=== PATIENT | female | born 1940 | race Caucasian/White ===

== ENCOUNTER → 2016-08-10 | Outpatient (CLI) | payer MEDICARE ==
[~2016-08-10] MED LIST: AMBIEN 5MG TABLE5 MG PO; AMOXICILLIN 8751 TAB PO; ANTIVERT; ANTIVERT 25MG25 MG PO; ARCAPTA IH; ASPI325T6 PO; ASPIRIN 81M81 MG/TA2 PO; ASPIRIN E.C. 8181 MG PO; ATIVAN 0.50.5 MG/TAB PO; ATROVENT INHALE14 GM IH; B COMPLEX1 TA2 PO; BIOTIN1 MG PO; BRILINTA60 MG PO; BRILINTA90 MG PO; BROVANA15 MCG/2 M IH; BUSPAR DIVIDOSE15 MG PO; BUSPAR5 MG PO; BYSTOLIC10 MG PO; BYSTOLIC5 MG PO; CALCIUM + D 6001 TAB PO; CARDI-OMEGA1000 MG PO; CEPHALEXIN500 M1 PO; CLEOCIN HCL300 MG PO; COMBIVENT INH14.7 GM IH; CYMBALTA; CYMBALTA 60MG60 MG PO; CYMBALTA60 MG PO; DALIRESP500 MCG PO; DEPAKOTE500 M1 PO; DIFLUCAN200 MG PO; DILAUDID 2MG TAB2 MG PO; DULCOLAX STOOL100 MG PO; EYE OP; FERROUS SU325 MG/TAB PO; FLOVENT 110MCG7.9 GM IH; FLOVENT 220MCG7.9 GM IH; FLOVENT DI100 MCG/Ac IH; FOLIC ACID 11 MG/TA1 PO; FOLIC ACID 40400 MCG PO; HCTZ; HCTZ 25MG TAB25 MG PO; HCTZ 25MG25 MG PO; HYDROXYZINE HCL25 MG PO; IPRATROPIUM BROM3 M1 IH; K-DUR 10 MEQ T10 MEQ PO; KLOR-CON 1010 MEQ PO; LAMICTAL; LAMICTAL 100MG100 MG PO; LAMICTAL200 MG PO; LASIX 20MG TABL20 MG PO; LEADER CLE17 GM/Dose PO; LIPITOR20 MG PO; LODINE400 MG PO; LODINE500 MG PO; MAG-OX 400400 MG/TAB PO; MAGNESIUM200 MG PO; METOPROLOL TART25 MG PO; MICARDIS20 MG PO; MOBIC 7.5MG7.5 MG PO; MOTRIN 800800 MG/TAB; MOTRIN800 MG PO; MS CONTIN 115 MG/TAB PO; MULTI-VITAMIN W1 TA1 PO; MULTIVITAMIN FO1 CAP PO; NAMENDA 10MG TA10 MG PO; NAMENDA PO; NAMENDA XR 21MG PO; NEURONTIN; NEURONTIN100 MG/CAP PO; NEURONTIN300 MG/CAP PO; NORCO 325 MG-51 TAB PO; NORVASC 10MG10 MG PO; PAPAYA PO; PRILOSEC 20MG20 MG PO; PRO AIR; PROAIR HFA0.09 MG/AC IH; PROTONIX 40MG T40 MG PO; Patient's Own Medica IH; ROBITUSSIN A-C S1 M1 PO; RT SPIRIVA18 MCG IH; SALINE NASAL 4444 ML NS; SENNA-LAX8.6 MG PO; SENOKOT RC; SINGULAIR 110 MG/TAB PO; SINGULAIR10 MG PO; SPIRIVA HANDIH18 MCG IH; SYNTHROID0.125 MG PO; SYNTHROID0.125 MG/T PO; TESSALON P100 MG/CAP PO; TOPROL; TYLENOL 325MG325 MG PO; TYLENOL 8 HR PO; ULTRAM 50MG TAB50 MG PO; VALIUM2 MG PO; VENTOLIN0.09 MG IH; VITAMIN C PUR1000 MG PO; VITAMIN C500 MG PO; VITAMIN D1000 IU PO; VITAMIN D31000 I1 PO; VITAMINC500CH PO; WELLBUTRIN PO; WELLBUTRIN XL150 MG PO; ZEBETA 5MG5 MG PO
== END ==
LOC: COL.RAD 09:52
DX: K57.30 Diverticulosis of large intestine without perforation or abscess without bleeding (principal)
CPT/HCPCS: Q9967

== ENCOUNTER → 2016-08-25 | Outpatient (CLI) | payer MEDICARE | LOC: BHSO 13:35 | DX: F31.73 Bipolar disorder, in partial remission, most recent episode manic (principal) ==

== ENCOUNTER 2016-08-27 11:34 | Emergency (ER) | payer MEDICARE ==
[~2016-08-27] VITALS: Ht 160 cm; Wt 89.5 kg
[~2016-08-27 11:34] MED LIST changes: -AMBIEN 5MG TABLE5 MG PO; -AMOXICILLIN 8751 TAB PO; -ATIVAN 0.50.5 MG/TAB PO; -BRILINTA60 MG PO; -BRILINTA90 MG PO; -BUSPAR5 MG PO; -CEPHALEXIN500 M1 PO; -DIFLUCAN200 MG PO; -DILAUDID 2MG TAB2 MG PO; -DULCOLAX STOOL100 MG PO; -FLOVENT 220MCG7.9 GM IH; -IPRATROPIUM BROM3 M1 IH; -K-DUR 10 MEQ T10 MEQ PO; -LEADER CLE17 GM/Dose PO; -MAG-OX 400400 MG/TAB PO; -MAGNESIUM200 MG PO; -MS CONTIN 115 MG/TAB PO; -MULTI-VITAMIN W1 TA1 PO; -NAMENDA XR 21MG PO; -NEURONTIN300 MG/CAP PO; -NORCO 325 MG-51 TAB PO; -PROTONIX 40MG T40 MG PO; -Patient's Own Medica IH; -ROBITUSSIN A-C S1 M1 PO; -SENNA-LAX8.6 MG PO; -TYLENOL 325MG325 MG PO; -TYLENOL 8 HR PO; -VITAMIN D31000 I1 PO; -VITAMINC500CH PO; -ZEBETA 5MG5 MG PO
[2016-08-27 11:37] VITALS: TEMP 98
[2016-08-27] MEDS ORDERED: NAMENDA XR 21MG PO (11:51)
[2016-08-27] MEDS ORDERED: ULTRAM 50MG TAB50 MG PO (11:55)
[2016-08-27] MEDS ORDERED: LASIX 20MG TABL20 MG PO (13:10)
[2016-08-27] MEDS ORDERED: CEPHALEXIN500 M1 PO (13:10)
[2016-08-27 13:24] LABS: PH 7 (5-8); SQUAMOUS EPITHELIAL 0-2 /hpf; URINE APPEARANCE Clear; URINE BACTERIA Rare /hpf; URINE BILIRUBIN Negative (NEGATIVE); URINE BLOOD Negative (NEGATIVE); URINE COLOR Yellow; URINE GLUCOSE Negative (NEGATIVE); URINE KETONE Negative (NEGATIVE); URINE RBC 0-2 /hpf; URINE UROBILINOGEN Negative (NEGATIVE); URINE WBC 0-2 /hpf
[2016-08-27 13:28] LABS: ADJUSTED CALCIUM 10.2 mg/dL (8.4-10.2); ALANINE AMINOTRANSFERASE 23 U/L (9-52); ALBUMIN 3.4 gm/dL (3.5-5.0); ALKALINE PHOSPHATASE 72 U/L (50-136); ANION GAP 8 mmol/L (7-16); BILIRUBIN,TOTAL 0.8 mg/dL (0.0-1.0); BLOOD UREA NITROGEN 9 mg/dL (7-17); CALCIUM 9.7 mg/dL (8.4-10.2); CARBON DIOXIDE 33 mmol/L (22-30); CHLORIDE 99 mmol/L (98-107); CREATININE, serum 0.59 mg/dL (0.52-1.25); GLUCOSE 129 mg/dL (74-106); POTASSIUM 3.8 mmol/L (3.4-5.0); SODIUM 139 mmol/L (137-145); TOTAL PROTEIN 6.5 gm/dL (6.4-8.2)
[2016-08-27 13:39] LABS: TROPONIN-I < 0.012 ng/mL (0.000-0.034)
[2016-08-27 13:58] LABS: B-TYPE NATRIURETIC PEPTIDE 121 pg/mL (0-450)
[2016-08-27 14:05] VITALS: BP 167/73; PULSE 93
== END 2016-08-27 14:06 | disposition home or self-care (01) ==
LOC: COL.ER 11:34
PROVIDERS: Emergency Medicine
DX: L03.116 Cellulitis of left lower limb (principal); L03.115 Cellulitis of right lower limb; I10 Essential (primary) hypertension; J44.9 Chronic obstructive pulmonary disease, unspecified; Z99.81 Dependence on supplemental oxygen; F03.90 Unspecified dementia, unspecified severity, without behavioral disturbance, psychotic disturbance, mood disturbance, and anxiety; Z87.891 Personal history of nicotine dependence

== ENCOUNTER → 2016-09-14 | Outpatient (CLI) | payer MEDICARE ==
[~2016-09-14] MED LIST changes: +AMBIEN 5MG TABLE5 MG PO; +AMOXICILLIN 8751 TAB PO; +ATIVAN 0.50.5 MG/TAB PO; +BRILINTA60 MG PO; +BRILINTA90 MG PO; +BUSPAR5 MG PO; +CEPHALEXIN500 M1 PO; +DIFLUCAN200 MG PO; +DILAUDID 2MG TAB2 MG PO; +DULCOLAX STOOL100 MG PO; +FLOVENT 220MCG7.9 GM IH; +IPRATROPIUM BROM3 M1 IH; +K-DUR 10 MEQ T10 MEQ PO; +LEADER CLE17 GM/Dose PO; +MAG-OX 400400 MG/TAB PO; +MAGNESIUM200 MG PO; +MS CONTIN 115 MG/TAB PO; +MULTI-VITAMIN W1 TA1 PO; +NAMENDA XR 21MG PO; +NEURONTIN300 MG/CAP PO; +NORCO 325 MG-51 TAB PO; +PROTONIX 40MG T40 MG PO; +Patient's Own Medica IH; +ROBITUSSIN A-C S1 M1 PO; +SENNA-LAX8.6 MG PO; +TYLENOL 325MG325 MG PO; +TYLENOL 8 HR PO; +VITAMIN D31000 I1 PO; +VITAMINC500CH PO; +ZEBETA 5MG5 MG PO
== END ==
LOC: MHCPAIN 12:04
DX: G89.29 Other chronic pain (principal); M47.817 Spondylosis without myelopathy or radiculopathy, lumbosacral region; M54.16 Radiculopathy, lumbar region; M53.3 Sacrococcygeal disorders, not elsewhere classified; M25.561 Pain in right knee; M25.562 Pain in left knee; M25.551 Pain in right hip; M25.552 Pain in left hip; E11.9 Type 2 diabetes mellitus without complications
CPT/HCPCS: G0463

== ENCOUNTER → 2016-10-18 | Outpatient (CLI) | payer MEDICARE | LOC: MHCPAIN 12:21 | DX: G89.29 Other chronic pain (principal); M47.27 Other spondylosis with radiculopathy, lumbosacral region; Z87.891 Personal history of nicotine dependence | CPT/HCPCS: G0463 ==

== ENCOUNTER 2016-10-21 08:05 | Day surgery (SDC) | payer MEDICARE ==
[~2016-10-21] VITALS: Ht 160 cm; Wt 86.5 kg
[2016-10-21] VITALS (339 sets, daily range): BP systolic 122–168; BP diastolic 50–71; PULSE 75–84; TEMP 98.3–98.9; O2SAT 81–99
[~2016-10-21 08:05] MED LIST changes: -AMBIEN 5MG TABLE5 MG PO; -AMOXICILLIN 8751 TAB PO; -ATIVAN 0.50.5 MG/TAB PO; -BRILINTA60 MG PO; -BRILINTA90 MG PO; -BUSPAR5 MG PO; -DIFLUCAN200 MG PO; -DILAUDID 2MG TAB2 MG PO; -DULCOLAX STOOL100 MG PO; -FLOVENT 220MCG7.9 GM IH; -IPRATROPIUM BROM3 M1 IH; -K-DUR 10 MEQ T10 MEQ PO; -LEADER CLE17 GM/Dose PO; -MAG-OX 400400 MG/TAB PO; -MAGNESIUM200 MG PO; -MS CONTIN 115 MG/TAB PO; -MULTI-VITAMIN W1 TA1 PO; -NEURONTIN300 MG/CAP PO; -NORCO 325 MG-51 TAB PO; -PROTONIX 40MG T40 MG PO; -Patient's Own Medica IH; -ROBITUSSIN A-C S1 M1 PO; -SENNA-LAX8.6 MG PO; -TYLENOL 325MG325 MG PO; -TYLENOL 8 HR PO; -VITAMIN D31000 I1 PO; -VITAMINC500CH PO; -ZEBETA 5MG5 MG PO
[2016-10-21 08:26] LABS: MEAN CELL VOLUME 88 fl (80.0-100.0); MEAN CORPUSCULAR HGB CONC 32 g/dl (33.0-37.0); MEAN PLATELET VOLUME 8.8 fl (7.4-10.4); PLATELET COUNT 259 K/mm3 (130-400); RED BLOOD COUNT 3.95 M/mm3 (4.10-5.30); REDCELL DISTRIBUTION WIDTH-CV 14.1 % (11.5-14.5); WHITE BLOOD COUNT 14.8 K/mm3 (4.8-10.8)
[2016-10-21 08:27] LABS: HEMATOCRIT 34.7 % (37.0-47.0); MEAN CORPUSCULAR HEMOGLOBIN 28 pg (27.0-31.0)
[2016-10-21 08:32] LABS: INR 1.4 (0.8-3.0); PROTHROMBIN TIME 15.7 SECONDS (9.7-12.8)
[2016-10-21 08:34] LABS: PARTIAL THROMBOPLASTIN TIME 30.8 SECONDS (26.0-37.0)
[2016-10-21 08:39] LABS: CALCIUM 10.2 mg/dL (8.4-10.2); CREATININE, serum 0.7 mg/dL (0.52-1.25); POTASSIUM 4.1 mmol/L (3.4-5.0)
[2016-10-21] MEDS ORDERED: PROTONIX 40MG T40 MG PO (09:48)
[2016-10-21] MEDS ORDERED: MAGNESIUM200 MG PO (09:49)
[2016-10-21] MEDS ORDERED: DULCOLAX STOOL100 MG PO (09:50)
[2016-10-21] MEDS ORDERED: NEURONTIN300 MG/CAP PO (09:51)
[2016-10-22] VITALS (71 sets, daily range): BP systolic 125–154; BP diastolic 58–78; PULSE 75–84; TEMP 98.6–99; O2SAT 79–97
[2016-10-22 05:20] LABS: BASO % 0.3 % (0.0-2.0); EOS # 0.1 (0.0-0.7); EOS % 0.6 % (0-4.0); GRAN # 9.8 (1.4-6.5); GRAN % 77.3 % (42.2-75.2); LYMPH # 1.7 (1.2-3.4); MEAN CELL VOLUME 87 fl (80.0-100.0); MEAN CORPUSCULAR HGB CONC 32 g/dl (33.0-37.0); MEAN PLATELET VOLUME 9.2 fl (7.4-10.4); MONO % 8.2 % (1.7-9.3); PLATELET COUNT 234 K/mm3 (130-400); RED BLOOD COUNT 3.58 M/mm3 (4.10-5.30); REDCELL DISTRIBUTION WIDTH-CV 13.9 % (11.5-14.5); WHITE BLOOD COUNT 12.7 K/mm3 (4.8-10.8)
[2016-10-22 05:21] LABS: HEMOGLOBIN 9.8 g/dl (12.5-16.0); MEAN CORPUSCULAR HEMOGLOBIN 27 pg (27.0-31.0)
[2016-10-22 05:33] LABS: ANION GAP 5 mmol/L (7-16); BLOOD UREA NITROGEN 8 mg/dL (7-17); CALCIUM 9.6 mg/dL (8.4-10.2); CARBON DIOXIDE 31 mmol/L (22-30); CHLORIDE 98 mmol/L (98-107); CREATININE, serum 0.58 mg/dL (0.52-1.25); GLUCOSE 118 mg/dL (74-106); SODIUM 134 mmol/L (137-145)
[2016-10-22 05:34] LABS: CREATINE KINASE < 20 U/L (30-135)
== END 2016-10-22 10:10 | disposition home or self-care (01) ==
LOC: COL.CAR 08:05 → ICU 11:14 → COL.CAR 10-22 10:10
PROVIDERS: Internal Medicine Interventional Cardiology
DX: I25.10 Atherosclerotic heart disease of native coronary artery without angina pectoris (principal); R94.39 Abnormal result of other cardiovascular function study; I27.2 Other secondary pulmonary hypertension; R07.9 Chest pain, unspecified; J44.9 Chronic obstructive pulmonary disease, unspecified; R60.0 Localized edema; Z80.9 Family history of malignant neoplasm, unspecified; I10 Essential (primary) hypertension; L03.90 Cellulitis, unspecified; Z90.49 Acquired absence of other specified parts of digestive tract; Z90.710 Acquired absence of both cervix and uterus; Z96.653 Presence of artificial knee joint, bilateral; Z96.643 Presence of artificial hip joint, bilateral; Z87.891 Personal history of nicotine dependence
CPT/HCPCS: OP; C1725; C1760; C1769; C1874; C1887; C1894; C9600; J0153; J0583; J2250; J3010; Q9967

== ENCOUNTER 2016-11-03 08:45 | Outpatient (RCR) | payer MEDICARE ==
[~2016-11-03 08:45] MED LIST changes: +DULCOLAX STOOL100 MG PO; +MAGNESIUM200 MG PO; +NEURONTIN300 MG/CAP PO; +PROTONIX 40MG T40 MG PO
[2016-11-06] MEDS ORDERED: BRILINTA60 MG PO (16:37)
[2016-11-06] MEDS ORDERED: NEURONTIN300 MG/CAP PO (16:37)
[2016-11-06] MEDS ORDERED: PROTONIX 40MG T40 MG PO (16:38)
[2016-11-11] MEDS ORDERED: DIFLUCAN200 MG PO (14:55)
[2016-11-11] MEDS ORDERED: AMOXICILLIN 8751 TAB PO (14:55)
[2016-11-11] MEDS ORDERED: TYLENOL 8 HR PO (14:57)
[2016-11-11] MEDS ORDERED: LASIX 20MG TABL20 MG PO (14:58)
[2016-11-11] MEDS ORDERED: NORCO 325 MG-51 TAB PO (15:00)
[2016-11-11] MEDS ORDERED: DILAUDID 2MG TAB2 MG PO (15:00)
[2016-11-11] MEDS ORDERED: ATIVAN 0.50.5 MG/TAB PO (15:00)
[2016-11-16] MEDS ORDERED: SINGULAIR 110 MG/TAB PO (11:29)
[2016-11-16] MEDS ORDERED: VITAMINC500CH PO (11:29)
[2016-11-16] MEDS ORDERED: SENNA-LAX8.6 MG PO (11:29)
[2016-11-16] MEDS ORDERED: NEURONTIN300 MG/CAP PO (11:29)
[2016-11-16] MEDS ORDERED: VITAMIN D31000 I1 PO (11:29)
[2016-11-16] MEDS ORDERED: ASPIRIN 81M81 MG/TA2 PO (11:29)
[2016-11-16] MEDS ORDERED: MULTI-VITAMIN W1 TA1 PO (11:29)
[2016-11-16] MEDS ORDERED: ZEBETA 5MG5 MG PO (11:29)
[2016-11-16] MEDS ORDERED: ROBITUSSIN A-C S1 M1 PO (11:29)
[2016-11-16] MEDS ORDERED: HCTZ 25MG TAB25 MG PO (11:29)
[2016-11-16] MEDS ORDERED: K-DUR 10 MEQ T10 MEQ PO (11:29)
[2016-11-16] MEDS ORDERED: LEADER CLE17 GM/Dose PO (11:29)
[2016-11-16] MEDS ORDERED: BUSPAR5 MG PO (11:29)
[2016-11-16] MEDS ORDERED: Patient's Own Medica IH (11:29)
[2016-11-16] MEDS ORDERED: BRILINTA90 MG PO (11:29)
[2016-11-16] MEDS ORDERED: TESSALON P100 MG/CAP PO (11:29)
[2016-11-16] MEDS ORDERED: AMBIEN 5MG TABLE5 MG PO (11:29)
[2016-11-16] MEDS ORDERED: MAG-OX 400400 MG/TAB PO (11:29)
[2016-11-16] MEDS ORDERED: FLOVENT 220MCG7.9 GM IH (11:29)
[2016-11-16] MEDS ORDERED: TYLENOL 325MG325 MG PO (11:29)
[2016-11-16] MEDS ORDERED: PROTONIX 40MG T40 MG PO (11:29)
[2016-11-16] MEDS ORDERED: LAMICTAL 100MG100 MG PO (11:29)
[2016-11-16] MEDS ORDERED: MS CONTIN 115 MG/TAB PO (11:29)
[2016-11-16] MEDS ORDERED: FOLIC ACID 11 MG/TA1 PO (11:29)
[2016-11-16] MEDS ORDERED: IPRATROPIUM BROM3 M1 IH ×2 (11:29)
== END 2016-11-24 08:54 ==
LOC: WSPT 08:45
DX: M54.16 Radiculopathy, lumbar region (principal); M79.2 Neuralgia and neuritis, unspecified; M53.3 Sacrococcygeal disorders, not elsewhere classified; G89.29 Other chronic pain
CPT/HCPCS: G0283-GP; G8978-GP; G8979-GP; G8980-GP

== ENCOUNTER 2016-11-06 11:36 | Inpatient (IN) | payer MEDICARE ==
[~2016-11-06] VITALS: Ht 160 cm; Wt 88.3 kg
[2016-11-06 12:23] LABS: BASO % 0.2 % (0.0-2.0); EOS % 0.1 % (0-4.0); GRAN # 17.7 (1.4-6.5); GRAN % 85.8 % (42.2-75.2); LYMPH # 1.4 (1.2-3.4); LYMPH % 6.9 % (20.0-51.0); MEAN CELL VOLUME 87 fl (80.0-100.0); MEAN CORPUSCULAR HGB CONC 31 g/dl (33.0-37.0); MEAN PLATELET VOLUME 8.9 fl (7.4-10.4); MONO # 1.2 (0.1-0.6); PLATELET COUNT 465 K/mm3 (130-400); RED BLOOD COUNT 3.92 M/mm3 (4.10-5.30); REDCELL DISTRIBUTION WIDTH-CV 15.2 % (11.5-14.5)
[2016-11-06 12:26] LABS: ADJUSTED CALCIUM 10.8 mg/dL (8.4-10.2); ALBUMIN 3.2 gm/dL (3.5-5.0); BILIRUBIN,TOTAL 0.7 mg/dL (0.0-1.0); CALCIUM 10.2 mg/dL (8.4-10.2); CREATININE, serum 0.5 mg/dL (0.52-1.25); POTASSIUM 3.8 mmol/L (3.4-5.0); TOTAL PROTEIN 6.9 gm/dL (6.4-8.2)
[2016-11-06 12:27] LABS: ARTERIAL BLD GAS O2 SATURATION 97.2 % (92-100); ARTERIAL BLD GAS TCO2 CT 28.8; ARTERIAL BLOOD GAS BASE EXCESS 3.6 (-2-2); ARTERIAL BLOOD GAS HCO3 27.6 meq/L (22-26); ARTERIAL BLOOD GAS PHT 7.46 C (7.35-7.45); ARTERIAL BLOOD GAS PO2 99.2 mmHg (80-100); ARTERIAL BLOOD GAS PO2T 99.2 (80-100); ARTERIAL BLOOD GAS pH 7.46 (7.35-7.45); OXYHEMOGLOBIN 96.5 %
[2016-11-06 12:28] LABS: ATS? YES
[2016-11-06 12:28] LABS: HEMATOCRIT 34.1 % (37.0-47.0); HEMOGLOBIN 10.6 g/dl (12.5-16.0); MEAN CORPUSCULAR HEMOGLOBIN 27 pg (27.0-31.0); WHITE BLOOD COUNT 20.6 K/mm3 (4.8-10.8)
[2016-11-06 15:47] VITALS: BP 145/59; PULSE 102; TEMP 98.6
[2016-11-06] MEDS ORDERED: NEURONTIN300 MG/CAP PO (16:37)
[2016-11-06] MEDS ORDERED: BRILINTA60 MG PO (16:37)
[2016-11-06] MEDS ORDERED: PROTONIX 40MG T40 MG PO (16:38)
[2016-11-06 19:31] LABS: PH 5 (5-8); URINE APPEARANCE Clear; URINE BACTERIA Rare /hpf; URINE BILIRUBIN Negative (NEGATIVE); URINE BLOOD Negative (NEGATIVE); URINE COLOR Yellow; URINE GLUCOSE Negative (NEGATIVE); URINE KETONE 2+ (NEGATIVE); URINE RBC None Seen /hpf; URINE UROBILINOGEN Negative (NEGATIVE)
[2016-11-06 20:23] VITALS: BP 125/45; PULSE 109; TEMP 99.1
[2016-11-07 00:49] VITALS: BP 121/48; PULSE 88; TEMP 98.2
[2016-11-07 04:51] VITALS: BP 125/52; PULSE 99; TEMP 98.6
[2016-11-07 07:59] VITALS: BP 122/50; PULSE 102; TEMP 98.6
[2016-11-07 13:31] VITALS: BP 133/58; PULSE 98; TEMP 98.6
[2016-11-07 16:37] VITALS: BP 152/62; PULSE 110; TEMP 99
[2016-11-07 21:06] VITALS: BP 133/53; PULSE 95; TEMP 99.2
[2016-11-08 00:02] VITALS: BP 133/53; PULSE 91; TEMP 99
[2016-11-08 03:52] VITALS: BP 129/52; PULSE 88; TEMP 97.9
[2016-11-08 06:22] LABS: BASO % 0.2 % (0.0-2.0); EOS # 0.1 (0.0-0.7); EOS % 0.7 % (0-4.0); GRAN # 10.2 (1.4-6.5); GRAN % 79.9 % (42.2-75.2); LYMPH # 1.5 (1.2-3.4); LYMPH % 12.1 % (20.0-51.0); MEAN CELL VOLUME 86 fl (80.0-100.0); MEAN CORPUSCULAR HGB CONC 30 g/dl (33.0-37.0); MONO # 0.8 (0.1-0.6); MONO % 6.4 % (1.7-9.3); PLATELET COUNT 379 K/mm3 (130-400); RED BLOOD COUNT 3.47 M/mm3 (4.10-5.30); REDCELL DISTRIBUTION WIDTH-CV 15.5 % (11.5-14.5); WHITE BLOOD COUNT 12.8 K/mm3 (4.8-10.8)
[2016-11-08 06:23] LABS: HEMATOCRIT 29.9 % (37.0-47.0); HEMOGLOBIN 9.1 g/dl (12.5-16.0); MEAN CORPUSCULAR HEMOGLOBIN 26 pg (27.0-31.0)
[2016-11-08 08:24] VITALS: BP 138/60; PULSE 96; TEMP 98.2
[2016-11-08 11:43] VITALS: BP 145/66; PULSE 108; TEMP 98
[2016-11-08 15:57] VITALS: BP 153/79; PULSE 123; TEMP 99.2
[2016-11-08 20:41] VITALS: BP 131/54; PULSE 102; TEMP 98.5
[2016-11-09 00:28] VITALS: BP 126/51; PULSE 93; TEMP 97.6
[2016-11-09 07:23] VITALS: BP 144/56; PULSE 96; TEMP 99.3
[2016-11-09 07:48] LABS: CALCIUM 9.7 mg/dL (8.4-10.2); CREATININE, serum 0.42 mg/dL (0.52-1.25); POTASSIUM 3.7 mmol/L (3.4-5.0)
[2016-11-09 07:55] LABS: BASO % 0.2 % (0.0-2.0); EOS # 0.1 (0.0-0.7); GRAN # 10.4 (1.4-6.5); GRAN % 81.7 % (42.2-75.2); LYMPH # 1.4 (1.2-3.4); LYMPH % 10.7 % (20.0-51.0); MEAN CELL VOLUME 89 fl (80.0-100.0); MEAN CORPUSCULAR HGB CONC 30 g/dl (33.0-37.0); MEAN PLATELET VOLUME 9.6 fl (7.4-10.4); MONO # 0.7 (0.1-0.6); MONO % 5.8 % (1.7-9.3); PLATELET COUNT 362 K/mm3 (130-400); RED BLOOD COUNT 3.35 M/mm3 (4.10-5.30); REDCELL DISTRIBUTION WIDTH-CV 15.8 % (11.5-14.5); WHITE BLOOD COUNT 12.8 K/mm3 (4.8-10.8)
[2016-11-09 08:08] LABS: HEMATOCRIT 29.9 % (37.0-47.0); MEAN CORPUSCULAR HEMOGLOBIN 27 pg (27.0-31.0)
[2016-11-09 12:14] VITALS: BP 133/62; PULSE 117; TEMP 98.6
[2016-11-09 15:45] VITALS: BP 128/67; PULSE 108; TEMP 98.1
[2016-11-09 20:08] VITALS: BP 146/55; PULSE 123; TEMP 99.1
[2016-11-10] VITALS (7 sets, daily range): BP systolic 115–160; BP diastolic 48–68; PULSE 78–100; TEMP 98–100
[2016-11-10 07:28] LABS: BASO % 0.3 % (0.0-2.0); EOS # 0.2 (0.0-0.7); EOS % 1.7 % (0-4.0); GRAN # 10.1 (1.4-6.5); GRAN % 78.5 % (42.2-75.2); LYMPH # 1.7 (1.2-3.4); MEAN CELL VOLUME 88 fl (80.0-100.0); MEAN CORPUSCULAR HGB CONC 30 g/dl (33.0-37.0); MEAN PLATELET VOLUME 9.1 fl (7.4-10.4); MONO # 0.8 (0.1-0.6); MONO % 5.9 % (1.7-9.3); PLATELET COUNT 365 K/mm3 (130-400); RED BLOOD COUNT 3.34 M/mm3 (4.10-5.30); REDCELL DISTRIBUTION WIDTH-CV 15.7 % (11.5-14.5); WHITE BLOOD COUNT 12.9 K/mm3 (4.8-10.8)
[2016-11-10 07:29] LABS: HEMATOCRIT 29.3 % (37.0-47.0); HEMOGLOBIN 8.9 g/dl (12.5-16.0); MEAN CORPUSCULAR HEMOGLOBIN 27 pg (27.0-31.0)
[2016-11-10 07:46] LABS: CALCIUM 9.9 mg/dL (8.4-10.2); CREATININE, serum 0.5 mg/dL (0.52-1.25); POTASSIUM 3.2 mmol/L (3.4-5.0)
[2016-11-11] VITALS (318 sets, daily range): BP systolic 124–156; BP diastolic 53–74; PULSE 87–130; TEMP 97.9–103; O2SAT 77–100
[2016-11-11 05:05] LABS: BASO % 0.3 % (0.0-2.0); EOS # 0.2 (0.0-0.7); EOS % 1.7 % (0-4.0); GRAN # 9.7 (1.4-6.5); GRAN % 76.9 % (42.2-75.2); LYMPH # 1.7 (1.2-3.4); LYMPH % 13.6 % (20.0-51.0); MEAN CELL VOLUME 86 fl (80.0-100.0); MEAN CORPUSCULAR HGB CONC 31 g/dl (33.0-37.0); MONO # 0.9 (0.1-0.6); MONO % 6.8 % (1.7-9.3); PLATELET COUNT 351 K/mm3 (130-400); RED BLOOD COUNT 3.26 M/mm3 (4.10-5.30); REDCELL DISTRIBUTION WIDTH-CV 15.4 % (11.5-14.5); WHITE BLOOD COUNT 12.7 K/mm3 (4.8-10.8)
[2016-11-11 05:12] LABS: HEMATOCRIT 28.1 % (37.0-47.0); HEMOGLOBIN 8.6 g/dl (12.5-16.0); MEAN CORPUSCULAR HEMOGLOBIN 26 pg (27.0-31.0)
[2016-11-11 05:15] LABS: CALCIUM 9.4 mg/dL (8.4-10.2); CREATININE, serum 0.49 mg/dL (0.52-1.25); POTASSIUM 3.8 mmol/L (3.4-5.0)
[2016-11-11 05:16] LABS: INR 1.5 (0.8-3.0); PROTHROMBIN TIME 16.4 SECONDS (9.7-12.8)
[2016-11-11] MEDS ORDERED: AMOXICILLIN 8751 TAB PO (14:55)
[2016-11-11] MEDS ORDERED: DIFLUCAN200 MG PO (14:55)
[2016-11-11] MEDS ORDERED: TYLENOL 8 HR PO (14:57)
[2016-11-11] MEDS ORDERED: LASIX 20MG TABL20 MG PO (14:58)
[2016-11-11] MEDS ORDERED: ATIVAN 0.50.5 MG/TAB PO (15:00)
[2016-11-11] MEDS ORDERED: DILAUDID 2MG TAB2 MG PO (15:00)
[2016-11-11] MEDS ORDERED: NORCO 325 MG-51 TAB PO (15:00)
[2016-11-11 20:35] LABS: BASO % 0.2 % (0.0-2.0); EOS # 0.1 (0.0-0.7); EOS % 0.4 % (0-4.0); GRAN # 13.4 (1.4-6.5); GRAN % 81.3 % (42.2-75.2); LYMPH # 1.8 (1.2-3.4); LYMPH % 10.6 % (20.0-51.0); MEAN CELL VOLUME 87 fl (80.0-100.0); MEAN CORPUSCULAR HGB CONC 31 g/dl (33.0-37.0); MEAN PLATELET VOLUME 8.8 fl (7.4-10.4); MONO # 1.1 (0.1-0.6); MONO % 6.7 % (1.7-9.3); PLATELET COUNT 355 K/mm3 (130-400); RED BLOOD COUNT 3.48 M/mm3 (4.10-5.30); REDCELL DISTRIBUTION WIDTH-CV 15.5 % (11.5-14.5); WHITE BLOOD COUNT 16.5 K/mm3 (4.8-10.8)
[2016-11-11 20:45] LABS: HEMATOCRIT 30.3 % (37.0-47.0); HEMOGLOBIN 9.4 g/dl (12.5-16.0); MEAN CORPUSCULAR HEMOGLOBIN 27 pg (27.0-31.0)
[2016-11-11 20:49] LABS: CALCIUM 9.8 mg/dL (8.4-10.2); CREATININE, serum 0.57 mg/dL (0.52-1.25); POTASSIUM 4.1 mmol/L (3.4-5.0)
[2016-11-12] VITALS (641 sets, daily range): BP systolic 122–127; BP diastolic 52–63; PULSE 87–93; TEMP 98.4–99.3; O2SAT 89–100
[2016-11-12 00:03] LABS: PH 6 (5-8); URINE APPEARANCE Clear; URINE BACTERIA None Seen /hpf; URINE BILIRUBIN Negative (NEGATIVE); URINE BLOOD Negative (NEGATIVE); URINE COLOR Yellow; URINE GLUCOSE Negative (NEGATIVE); URINE KETONE Negative (NEGATIVE); URINE UROBILINOGEN Negative (NEGATIVE)
[2016-11-12 04:35] LABS: BASO % 0.3 % (0.0-2.0); EOS # 0.1 (0.0-0.7); EOS % 0.8 % (0-4.0); GRAN # 13.1 (1.4-6.5); GRAN % 82.1 % (42.2-75.2); LYMPH # 1.5 (1.2-3.4); LYMPH % 9.2 % (20.0-51.0); MEAN CELL VOLUME 86 fl (80.0-100.0); MEAN CORPUSCULAR HGB CONC 31 g/dl (33.0-37.0); MONO # 1.1 (0.1-0.6); MONO % 6.8 % (1.7-9.3); RED BLOOD COUNT 3.38 M/mm3 (4.10-5.30); REDCELL DISTRIBUTION WIDTH-CV 15.4 % (11.5-14.5); WHITE BLOOD COUNT 15.9 K/mm3 (4.8-10.8)
[2016-11-12 04:37] LABS: HEMATOCRIT 29.2 % (37.0-47.0); MEAN CORPUSCULAR HEMOGLOBIN 27 pg (27.0-31.0)
[2016-11-12 04:38] LABS: MEAN PLATELET VOLUME 9.9 fl (7.4-10.4); PLATELET COUNT 348 K/mm3 (130-400)
[2016-11-12 04:42] LABS: ADJUSTED CALCIUM 10.8 mg/dL (8.4-10.2); ALBUMIN 2.6 gm/dL (3.5-5.0); BILIRUBIN,TOTAL 0.8 mg/dL (0.0-1.0); CALCIUM 9.7 mg/dL (8.4-10.2); CREATININE, serum 0.45 mg/dL (0.52-1.25); MAGNESIUM 1.9 mg/dL (1.6-2.3); POTASSIUM 4.1 mmol/L (3.4-5.0); TOTAL PROTEIN 5.7 gm/dL (6.4-8.2)
[2016-11-12 14:48] LABS: PH 6 (5-8); URINE APPEARANCE Clear; URINE BACTERIA None Seen /hpf; URINE BILIRUBIN Negative (NEGATIVE); URINE BLOOD Negative (NEGATIVE); URINE COLOR Yellow; URINE GLUCOSE Negative (NEGATIVE); URINE KETONE Negative (NEGATIVE); URINE RBC 0-2 /hpf; URINE UROBILINOGEN Negative (NEGATIVE); URINE WBC 0-2 /hpf
[2016-11-13 01:57] VITALS: BP 132/49; PULSE 85; TEMP 98.1
[2016-11-13 06:01] VITALS: BP 136/47; PULSE 94; TEMP 98.2
[2016-11-13 07:15] LABS: ADD PATHOLOGY DIFF REVIEW NO
[2016-11-13 07:36] LABS: MEAN CELL VOLUME 86 fl (80.0-100.0); MEAN CORPUSCULAR HGB CONC 31 g/dl (33.0-37.0); PLATELET COUNT 364 K/mm3 (130-400); RED BLOOD COUNT 3.12 M/mm3 (4.10-5.30); REDCELL DISTRIBUTION WIDTH-CV 15.2 % (11.5-14.5); WHITE BLOOD COUNT 13.2 K/mm3 (4.8-10.8)
[2016-11-13 07:41] LABS: CALCIUM 9.7 mg/dL (8.4-10.2); CREATININE, serum 0.56 mg/dL (0.52-1.25); MAGNESIUM 1.9 mg/dL (1.6-2.3); POTASSIUM 3.6 mmol/L (3.4-5.0)
[2016-11-13 07:49] LABS: HEMATOCRIT 26.8 % (37.0-47.0); HEMOGLOBIN 8.4 g/dl (12.5-16.0); MEAN CORPUSCULAR HEMOGLOBIN 27 pg (27.0-31.0)
[2016-11-13 09:30] VITALS: BP 141/57; PULSE 88; TEMP 98.6
[2016-11-13 10:21] LABS: BAND 24 % (0-10); EOSINOPHIL 2 % (0-4); NEUTROPHILS 60 % (42.0-75.2); TOTAL CELLS COUNTED 100
[2016-11-13 10:22] LABS: PLATELET ESTIMATE NORMAL (NORMAL)
[2016-11-13 15:00] VITALS: BP 127/56; PULSE 88; TEMP 98
[2016-11-13 18:00] VITALS: BP 151/56; PULSE 98; TEMP 98.4
[2016-11-13 19:30] VITALS: BP 124/47; PULSE 96; TEMP 98.6
[2016-11-14 04:46] VITALS: BP 133/55; PULSE 80; TEMP 98.3
[2016-11-14 10:00] VITALS: BP 118/47; PULSE 77; TEMP 97.7
[2016-11-14 14:29] VITALS: BP 108/48; PULSE 87; TEMP 97.9
[2016-11-14 17:40] VITALS: BP 124/50; PULSE 86; TEMP 98.2
[2016-11-14 22:01] VITALS: BP 116/43; PULSE 86; TEMP 98.1
[2016-11-15 01:44] VITALS: BP 113/46; PULSE 74; TEMP 98.4
[2016-11-15 05:32] LABS: ADD PATHOLOGY DIFF REVIEW NO
[2016-11-15 05:36] VITALS: BP 110/49; PULSE 84; TEMP 99.2
[2016-11-15 05:48] LABS: HEMATOCRIT 47.5 % (37.0-47.0); MEAN CELL VOLUME 87 fl (80.0-100.0); MEAN CORPUSCULAR HGB CONC 31 g/dl (33.0-37.0); MEAN PLATELET VOLUME 8.9 fl (7.4-10.4); RED BLOOD COUNT 5.46 M/mm3 (4.10-5.30); REDCELL DISTRIBUTION WIDTH-CV 15.7 % (11.5-14.5); WHITE BLOOD COUNT 7.4 K/mm3 (4.8-10.8)
[2016-11-15 05:49] LABS: CALCIUM 9.9 mg/dL (8.4-10.2); CREATININE, serum 0.6 mg/dL (0.52-1.25); HEMOGLOBIN 14.5 g/dl (12.5-16.0); MEAN CORPUSCULAR HEMOGLOBIN 27 pg (27.0-31.0); PLATELET COUNT 208 K/mm3 (130-400); POTASSIUM 3.9 mmol/L (3.4-5.0)
[2016-11-15 06:24] LABS: BAND 12 % (0-10); EOSINOPHIL 2 % (0-4); NEUTROPHILS 71 % (42.0-75.2); TOTAL CELLS COUNTED 100
[2016-11-15 09:34] VITALS: BP 113/47; PULSE 82; TEMP 98.1
[2016-11-15 13:57] VITALS: BP 139/55; PULSE 84; TEMP 98.2
[2016-11-15 17:33] VITALS: BP 156/64; PULSE 100; TEMP 100.1
[2016-11-15 19:35] VITALS: TEMP 101
[2016-11-16 03:00] VITALS: BP 133/55; PULSE 80; TEMP 97.2
[2016-11-16 05:35] VITALS: BP 132/58; PULSE 80; TEMP 99.3
[2016-11-16] MEDS ORDERED: K-DUR 10 MEQ T10 MEQ PO (11:29)
[2016-11-16] MEDS ORDERED: MS CONTIN 115 MG/TAB PO (11:29)
[2016-11-16] MEDS ORDERED: MULTI-VITAMIN W1 TA1 PO (11:29)
[2016-11-16] MEDS ORDERED: VITAMIN D31000 I1 PO (11:29)
[2016-11-16] MEDS ORDERED: IPRATROPIUM BROM3 M1 IH ×2 (11:29)
[2016-11-16] MEDS ORDERED: SENNA-LAX8.6 MG PO (11:29)
[2016-11-16] MEDS ORDERED: AMBIEN 5MG TABLE5 MG PO (11:29)
[2016-11-16] MEDS ORDERED: ROBITUSSIN A-C S1 M1 PO (11:29)
[2016-11-16] MEDS ORDERED: VITAMINC500CH PO (11:29)
[2016-11-16] MEDS ORDERED: FLOVENT 220MCG7.9 GM IH (11:29)
[2016-11-16] MEDS ORDERED: FOLIC ACID 11 MG/TA1 PO (11:29)
[2016-11-16] MEDS ORDERED: BRILINTA90 MG PO (11:29)
[2016-11-16] MEDS ORDERED: NEURONTIN300 MG/CAP PO (11:29)
[2016-11-16] MEDS ORDERED: ASPIRIN 81M81 MG/TA2 PO (11:29)
[2016-11-16] MEDS ORDERED: Patient's Own Medica IH (11:29)
[2016-11-16] MEDS ORDERED: BUSPAR5 MG PO (11:29)
[2016-11-16] MEDS ORDERED: HCTZ 25MG TAB25 MG PO (11:29)
[2016-11-16] MEDS ORDERED: LAMICTAL 100MG100 MG PO (11:29)
[2016-11-16] MEDS ORDERED: LEADER CLE17 GM/Dose PO (11:29)
[2016-11-16] MEDS ORDERED: ZEBETA 5MG5 MG PO (11:29)
[2016-11-16] MEDS ORDERED: TESSALON P100 MG/CAP PO (11:29)
[2016-11-16] MEDS ORDERED: SINGULAIR 110 MG/TAB PO (11:29)
[2016-11-16] MEDS ORDERED: PROTONIX 40MG T40 MG PO (11:29)
[2016-11-16] MEDS ORDERED: MAG-OX 400400 MG/TAB PO (11:29)
[2016-11-16] MEDS ORDERED: TYLENOL 325MG325 MG PO (11:29)
[2016-11-16 15:10] VITALS: BP 132/58; PULSE 80; TEMP 99.3
== END 2016-11-16 16:05 | DRG 871 ==
LOC: COL.ER 11:36 → SURG 14:14 → MEDICAL 14:14 → ICU 11-11 19:31 → SURG 11-12 11:30
PROVIDERS: Family Medicine; Internal Medicine; Internal Medicine Pulmonary Disease; Nurse Practitioner Family; Physician Assistant
PROC: 0BJ08ZZ Inspection of Tracheobronchial Tree, Via Natural or Artificial Opening Endoscopic (ICD-10-PCS; principal; 2016-11-08 10:00)
PROC: 0BBG3ZX Excision of Left Upper Lung Lobe, Percutaneous Approach, Diagnostic (ICD-10-PCS; 2016-11-11)
DX: A41.9 Sepsis, unspecified organism (principal); J18.9 Pneumonia, unspecified organism; J96.21 Acute and chronic respiratory failure with hypoxia; C34.12 Malignant neoplasm of upper lobe, left bronchus or lung; C79.51 Secondary malignant neoplasm of bone; E87.3 Alkalosis; E44.0 Moderate protein-calorie malnutrition; I10 Essential (primary) hypertension; J44.9 Chronic obstructive pulmonary disease, unspecified; Z87.891 Personal history of nicotine dependence; L93.0 Discoid lupus erythematosus; I25.10 Atherosclerotic heart disease of native coronary artery without angina pectoris; I87.2 Venous insufficiency (chronic) (peripheral); E87.6 Hypokalemia; Z95.5 Presence of coronary angioplasty implant and graft
CPT/HCPCS: 99223-AI; 99232-AI; 99233-AI; 99239; A9284; A9585; J1170; J1650; J1956; J2250; J2543; J2704; J3010; J7030; J7050; J7120; Q9967

== ENCOUNTER 2016-11-29 16:21 | Inpatient (IN) | payer MEDICARE ==
[~2016-11-29] VITALS: Ht 162.6 cm; Wt 80.8 kg
[~2016-11-29 16:21] MED LIST changes: +AMBIEN 5MG TABLE5 MG PO; +AMOXICILLIN 8751 TAB PO; +ATIVAN 0.50.5 MG/TAB PO; +BRILINTA60 MG PO; +BRILINTA90 MG PO; +BUSPAR5 MG PO; +DIFLUCAN200 MG PO; +DILAUDID 2MG TAB2 MG PO; +FLOVENT 220MCG7.9 GM IH; +IPRATROPIUM BROM3 M1 IH; +K-DUR 10 MEQ T10 MEQ PO; +LEADER CLE17 GM/Dose PO; +MAG-OX 400400 MG/TAB PO; +MS CONTIN 115 MG/TAB PO; +MULTI-VITAMIN W1 TA1 PO; +NORCO 325 MG-51 TAB PO; +Patient's Own Medica IH; +ROBITUSSIN A-C S1 M1 PO; +SENNA-LAX8.6 MG PO; +TYLENOL 325MG325 MG PO; +TYLENOL 8 HR PO; +VITAMIN D31000 I1 PO; +VITAMINC500CH PO; +ZEBETA 5MG5 MG PO
[2016-11-29] MEDS ORDERED: BYSTOLIC5 MG PO (16:32)
[2016-11-29] MEDS ORDERED: DULCOLAX STOOL100 MG PO (16:33)
[2016-11-29] MEDS ORDERED: LASIX 20MG TABL20 MG PO ×3 (16:35→16:37)
[2016-11-29] MEDS ORDERED: NEURONTIN100 MG/CAP PO (16:35)
[2016-11-29] MEDS ORDERED: MIRALAX PA17 GM/Dose PO (16:37)
[2016-11-29] MEDS ORDERED: MIRTAZAPINE7.5 MG PO (16:38)
[2016-11-29] MEDS ORDERED: REMERON 15M15 MG/TA1 PO (16:38)
[2016-11-29] MEDS ORDERED: NAMENDA XR PO (16:39)
[2016-11-29] MEDS ORDERED: NAMENDA XR 21MG PO (16:40)
[2016-11-29] MEDS ORDERED: NAMENDA XR 28MG PO (16:40)
[2016-11-29] MEDS ORDERED: ZEBETA 5MG5 MG PO (16:41)
[2016-11-29] MEDS ORDERED: COLACE 100100 MG/CAP PO (16:41)
[2016-11-29] MEDS ORDERED: BRILINTA90 MG PO (16:41)
[2016-11-29] MEDS ORDERED: TYLENOL 500MG500 MG PO (16:42)
[2016-11-29] MEDS ORDERED: LAMICTAL 100MG100 MG PO (16:42)
[2016-11-29] MEDS ORDERED: IPRATROPIUM BROM3 M1 IH (16:43)
[2016-11-29] MEDS ORDERED: DILAUDID 2MG TAB2 MG PO (16:43)
[2016-11-29] MEDS ORDERED: ATIVAN 0.50.5 MG/TAB PO (16:44)
[2016-11-29] MEDS ORDERED: AMBIEN 5MG TABLE5 MG PO (16:44)
[2016-11-29] MEDS ORDERED: DULCOLAX S10 MG/SUPP RC (16:45)
[2016-11-29] MEDS ORDERED: FENTANYL 25 MCG TD (16:46)
[2016-11-29] MEDS ORDERED: FLEET MINE1 BOT/133 RC (16:46)
[2016-11-29] MEDS ORDERED: MILK OF MA400 MG/52 PO (16:47)
[2016-11-29] MEDS ORDERED: NORCO 325 MG-51 TAB PO (16:48)
[2016-11-29] MEDS ORDERED: TESSALON PERLE200 MG PO (16:49)
[2016-11-29 17:03] LABS: BASO % 0.3 % (0.0-2.0); EOS # 0.1 (0.0-0.7); EOS % 0.4 % (0-4.0); GRAN # 12.5 (1.4-6.5); GRAN % 93.2 % (42.2-75.2); LYMPH # 0.4 (1.2-3.4); MEAN CELL VOLUME 85 fl (80.0-100.0); MEAN CORPUSCULAR HGB CONC 31 g/dl (33.0-37.0); MONO # 0.3 (0.1-0.6); MONO % 2.5 % (1.7-9.3); PLATELET COUNT 373 K/mm3 (130-400); RED BLOOD COUNT 4.11 M/mm3 (4.10-5.30); REDCELL DISTRIBUTION WIDTH-CV 15.8 % (11.5-14.5); WHITE BLOOD COUNT 13.4 K/mm3 (4.8-10.8)
[2016-11-29 17:05] LABS: HEMATOCRIT 34.8 % (37.0-47.0); HEMOGLOBIN 10.7 g/dl (12.5-16.0); MEAN CORPUSCULAR HEMOGLOBIN 26 pg (27.0-31.0)
[2016-11-29 17:12] LABS: ARTERIAL BLD GAS O2 SATURATION 95.1 % (92-100); ARTERIAL BLD GAS TCO2 CT 34.8; ARTERIAL BLOOD GAS BASE EXCESS 9.4 (-2-2); ARTERIAL BLOOD GAS HCO3 33.5 meq/L (22-26); ARTERIAL BLOOD GAS PO2 74.4 mmHg (80-100); ARTERIAL BLOOD GAS PO2T 74.4 (80-100); OXYHEMOGLOBIN 94.4 %
[2016-11-29 17:13] LABS: ALLEN TEST YES; ALLENS TEST RESULT PASS; ATS? YES
[2016-11-29 17:14] LABS: ADJUSTED CALCIUM 10.3 mg/dL (8.4-10.2); ALBUMIN 3.3 gm/dL (3.5-5.0); BILIRUBIN,TOTAL 0.9 mg/dL (0.0-1.0); CALCIUM 9.7 mg/dL (8.4-10.2); CREATININE, serum 0.61 mg/dL (0.52-1.25)
[2016-11-29 17:45] LABS: PH 5 (5-8); SQUAMOUS EPITHELIAL 0-2 /hpf; URINE APPEARANCE Cloudy; URINE BACTERIA Moderate /hpf; URINE BILIRUBIN Negative (NEGATIVE); URINE BLOOD 3+ (NEGATIVE); URINE COLOR Amber; URINE GLUCOSE Negative (NEGATIVE); URINE KETONE Negative (NEGATIVE); URINE RBC >50 /hpf; URINE UROBILINOGEN >=4.0 mg/dL (NEGATIVE)
[2016-11-29 17:47] LABS: URINE WBC >50 /hpf
[2016-11-29] MEDS ORDERED: SINGULAIR 110 MG/TAB PO (20:41)
[2016-11-29] MEDS ORDERED: RT SPIRIVA18 MCG IH (20:41)
[2016-11-29 22:15] VITALS: BP 118/47; PULSE 90; TEMP 99.6
[2016-11-30] MEDS ORDERED: K-TAB20 PO (03:07)
[2016-11-30 04:18] VITALS: BP 114/51; PULSE 88; TEMP 97.5
[2016-11-30 07:44] VITALS: BP 125/48; PULSE 86; TEMP 98.3
[2016-11-30 08:39] LABS: BASO % 0.4 % (0.0-2.0); EOS # 0.2 (0.0-0.7); EOS % 2.5 % (0-4.0); GRAN # 6.9 (1.4-6.5); LYMPH # 0.8 (1.2-3.4); LYMPH % 9.7 % (20.0-51.0); MEAN CELL VOLUME 86 fl (80.0-100.0); MEAN CORPUSCULAR HGB CONC 30 g/dl (33.0-37.0); MEAN PLATELET VOLUME 9.2 fl (7.4-10.4); MONO # 0.5 (0.1-0.6); MONO % 5.7 % (1.7-9.3); PLATELET COUNT 310 K/mm3 (130-400); RED BLOOD COUNT 3.43 M/mm3 (4.10-5.30); REDCELL DISTRIBUTION WIDTH-CV 15.9 % (11.5-14.5); WHITE BLOOD COUNT 8.6 K/mm3 (4.8-10.8)
[2016-11-30 08:43] LABS: HEMATOCRIT 29.6 % (37.0-47.0); MEAN CORPUSCULAR HEMOGLOBIN 26 pg (27.0-31.0)
[2016-11-30 08:50] LABS: CALCIUM 8.1 mg/dL (8.4-10.2); CREATININE, serum 0.6 mg/dL (0.52-1.25); POTASSIUM 3.5 mmol/L (3.4-5.0)
[2016-11-30 12:11] VITALS: BP 132/43; PULSE 99; TEMP 98.9
[2016-11-30 16:42] VITALS: BP 144/47; PULSE 108; TEMP 97.9
[2016-11-30 20:15] VITALS: BP 129/47; PULSE 94; TEMP 99.4
[2016-11-30 23:45] VITALS: BP 123/48; PULSE 86; TEMP 98.2
[2016-12-01 03:14] VITALS: BP 148/60; PULSE 96; TEMP 98.5
[2016-12-01 08:28] VITALS: BP 147/58; PULSE 96; TEMP 98
[2016-12-01 11:24] LABS: BASO % 0.2 % (0.0-2.0); EOS # 0.2 (0.0-0.7); EOS % 1.4 % (0-4.0); GRAN # 10.1 (1.4-6.5); GRAN % 81.5 % (42.2-75.2); LYMPH # 1.2 (1.2-3.4); LYMPH % 9.4 % (20.0-51.0); MEAN CELL VOLUME 87 fl (80.0-100.0); MEAN CORPUSCULAR HGB CONC 30 g/dl (33.0-37.0); MEAN PLATELET VOLUME 9.2 fl (7.4-10.4); MONO # 0.9 (0.1-0.6); MONO % 6.9 % (1.7-9.3); PLATELET COUNT 337 K/mm3 (130-400); RED BLOOD COUNT 3.82 M/mm3 (4.10-5.30); REDCELL DISTRIBUTION WIDTH-CV 15.6 % (11.5-14.5); WHITE BLOOD COUNT 12.4 K/mm3 (4.8-10.8)
[2016-12-01 11:29] LABS: HEMATOCRIT 33.2 % (37.0-47.0); HEMOGLOBIN 9.8 g/dl (12.5-16.0); MEAN CORPUSCULAR HEMOGLOBIN 26 pg (27.0-31.0)
[2016-12-01 11:34] LABS: CREATININE, serum 0.46 mg/dL (0.52-1.25); POTASSIUM 3.6 mmol/L (3.4-5.0)
[2016-12-01] MEDS ORDERED: OMNICEF 300MG300 MG PO (12:33)
[2016-12-01 12:47] VITALS: BP 132/64; PULSE 89; TEMP 98.4
[2016-12-01] MEDS ORDERED: K-TAB20 PO (12:48)
[2016-12-01 13:54] VITALS: BP 132/64; PULSE 89; TEMP 98.4
== END 2016-12-01 15:48 | DRG 690 ==
LOC: COL.ER 16:21 → MEDICAL 17:28
PROVIDERS: Family Medicine; Internal Medicine; Physician Assistant
DX: N39.0 Urinary tract infection, site not specified (principal); C34.12 Malignant neoplasm of upper lobe, left bronchus or lung; E44.0 Moderate protein-calorie malnutrition; C79.31 Secondary malignant neoplasm of brain; C79.51 Secondary malignant neoplasm of bone; J96.10 Chronic respiratory failure, unspecified whether with hypoxia or hypercapnia; I10 Essential (primary) hypertension; J44.9 Chronic obstructive pulmonary disease, unspecified; E87.6 Hypokalemia; I25.10 Atherosclerotic heart disease of native coronary artery without angina pectoris; R53.81 Other malaise; I87.2 Venous insufficiency (chronic) (peripheral); Z99.81 Dependence on supplemental oxygen; Z87.891 Personal history of nicotine dependence; Z68.30 Body mass index [BMI] 30.0-30.9, adult
CPT/HCPCS: 99222-AI; 99233-AI; 99239; J0692; J0696; J1650; J2405; J3370; J3480; J7030; J7050

== ENCOUNTER → 2016-12-05 | Outpatient (REF) ==
[~2016-12-05] MED LIST changes: -BYSTOLIC10 MG PO; +BYSTOLIC20 MG PO; +CARDIZEM CD 12120 MG PO; +COLACE 100100 MG/CAP PO; +DULCOLAX S10 MG/SUPP RC; +FENTANYL 25 MCG TD; +FLEET MINE1 BOT/133 RC; +K-DUR20 MEQ PO; +K-TAB20 PO; +LASIX 40MG TABL40 MG PO; +MILK OF MA400 MG/52 PO; +MIRALAX PA17 GM/Dose PO; +NAMENDA XR 28MG PO; +NAMENDA XR PO; +OMNICEF 300MG300 MG PO; +PULMICORT0.5 MG/2 M IH; +REMERON 15M15 MG/TA1 PO; +TESSALON PERLE200 MG PO
[2016-12-05 12:04] LABS: CALCIUM 7.8 mg/dL (8.4-10.2); CREATININE, serum 0.45 mg/dL (0.52-1.25); POTASSIUM 4.4 mmol/L (3.4-5.0)
== END ==
LOC: ZLAB.STJ 11:02
PROVIDERS: Internal Medicine
DX: Z02.89 Encounter for other administrative examinations (principal)

== ENCOUNTER 2016-12-20 09:56 | Outpatient (CLI) | payer MEDICARE ==
[~2016-12-20 09:56] MED LIST changes: -CARDIZEM CD 12120 MG PO; -K-DUR20 MEQ PO; -PULMICORT0.5 MG/2 M IH
[2016-12-20] MEDS ORDERED: K-DUR20 MEQ PO (11:04)
[2016-12-20] MEDS ORDERED: ASPIRIN 81M81 MG/TA2 PO (11:06)
[2016-12-20] MEDS ORDERED: CARDIZEM CD 12120 MG PO (11:15)
[2016-12-20] MEDS ORDERED: PULMICORT0.5 MG/2 M IH (11:15)
[2016-12-20 11:29] VITALS: BP 112/60; PULSE 87; TEMP 97.7
== END 2016-12-20 11:48 | disposition home or self-care (01) ==
LOC: EUO 09:56
DX: C34.12 Malignant neoplasm of upper lobe, left bronchus or lung (principal)
CPT/HCPCS: C1751

== ENCOUNTER → 2016-12-28 | Outpatient (REF) ==
[~2016-12-28] MED LIST changes: +CARDIZEM CD 12120 MG PO; +K-DUR20 MEQ PO; +LEVAQUIN 5500 MG/TA1 PO; +LORAINT PO; +PULMICORT0.5 MG/2 M IH; +ROXANOL 20MG20 MG/ML SL; +TRANSDERM-0.5 MG/21 TD
[2016-12-28 09:32] LABS: MEAN CELL VOLUME 87 fl (80.0-100.0); MEAN CORPUSCULAR HGB CONC 29 g/dl (33.0-37.0); MEAN PLATELET VOLUME 9.5 fl (7.4-10.4); PLATELET COUNT 471 K/mm3 (130-400); RED BLOOD COUNT 3.61 M/mm3 (4.10-5.30)
[2016-12-28 09:42] LABS: HEMATOCRIT 31.4 % (37.0-47.0); HEMOGLOBIN 9.1 g/dl (12.5-16.0); MEAN CORPUSCULAR HEMOGLOBIN 25 pg (27.0-31.0); WHITE BLOOD COUNT 24.3 K/mm3 (4.8-10.8)
[2016-12-28 09:43] LABS: ADD PATHOLOGY DIFF REVIEW NO
[2016-12-28 09:45] LABS: ADJUSTED CALCIUM 11.4 mg/dL (8.4-10.2); ALBUMIN 2.6 gm/dL (3.5-5.0); BILIRUBIN,TOTAL 0.7 mg/dL (0.0-1.0); CALCIUM 10.3 mg/dL (8.4-10.2); CREATININE, serum 0.52 mg/dL (0.52-1.25); POTASSIUM 4.2 mmol/L (3.4-5.0)
[2016-12-28 10:21] LABS: BAND 43 % (0-10); LYMPHOCYTE 5 % (20.0-51.0); NEUTROPHILS 51 % (42.0-75.2); PLATELET ESTIMATE INCREASED (NORMAL); TOTAL CELLS COUNTED 100
== END ==
LOC: ZLAB.STJ 09:25
PROVIDERS: Internal Medicine
DX: Z72.89 Other problems related to lifestyle (principal)